=== PATIENT | female | born 1965 | race Caucasian/White ===

== ENCOUNTER 2018-04-22 16:25 | Emergency (ER) | payer BC ==
[2018-04-22] MEDS ORDERED: SODIUM CHLORIDE 0.9% 500 ML 500 ML IV STA (16:46)
[2018-04-22] MEDS ORDERED: SODIUM CHLORIDE 0.9% 1,000 ML IV STA (16:46)
[2018-04-22] MEDS ORDERED: MECLIZINE 12.5 MG TAB PO STA (16:51)
--- NOTE | 2018-04-22 16:57 | ED ---
General Adult HPI - General Chief complaint: Dizziness Stated complaint: Dizziness Time Seen by Provider: 04/22/18 16:39 Source: patient, RN notes reviewed Mode of arrival: ambulatory Limitations: no limitations - History of Present Illness Initial comments: Patient is a pleasant 52-year-old female presenting to the emergency department with dizziness. Patient felt fine and she woke up this morning. Patient laid down and took a nap later. Patient got up to shower around 12:30 and had sudden onset of dizziness. Dizziness is described as a spinning type sensation. Patient also had palpitations earlier. Palpitations have resolved. Patient did go to urgent care and was sent here with concerns for blood pressure being high. They did orthostatic blood pressure which the patient's friend who is a nurse states was non-concerning. - Related Data Home Medications Medication Instructions Recorded Confirmed Cholecalciferol [Vitamin D3] 3,000 unit PO DAILY 01/03/15 04/22/18 ALPRAZolam [Xanax] 0.25 mg PO DIRECTED PRN 04/22/18 04/22/18 Ibuprofen [Motrin Ib] 800 mg PO Q8H PRN 04/22/18 04/22/18 Multivitamin,Therapeutic [Thera] 1 tab PO DAILY 04/22/18 04/22/18 Allergies Allergy/AdvReac Type Severity Reaction Status Date / Time Penicillins Allergy Rash/Hives Verified 04/22/18 16:50 Sulfa (Sulfonamide Allergy Rash/Hives Verified 04/22/18 16:50 Antibiotics) adhesive AdvReac Rash/Hives Verified 04/22/18 16:50 Review of Systems ROS Statement: Those systems with pertinent positive or pertinent negative responses have been documented in the HPI. ROS Other: All systems not noted in ROS Statement are negative. Constitutional: Denies: fever Eyes: Denies: eye pain ENT: Denies: ear pain Respiratory: Denies: cough Cardiovascular: Reports: palpitations. Denies: chest pain Endocrine: Denies: fatigue Gastrointestinal: Denies: abdominal pain Genitourinary: Denies: dysuria Musculoskeletal: Denies: back pain Skin: Denies: rash Neurological: Reports: vertigo. Denies: headache, weakness, confusion Past Medical History Past Medical History: Hypertension History of Any Multi-Drug Resistant Organisms: None Reported Past Surgical History: Ablation, Cholecystectomy, Tonsillectomy Additional Past Surgical History / Comment(s): uterine ablation Past Psychological History: No Psychological Hx Reported Smoking Status: Never smoker Past Alcohol Use History: Occasional Past Drug Use History: None Reported General Exam Limitations: no limitations General appearance: alert, in no apparent distress Head exam: Present: atraumatic Eye exam: Present: normal appearance, PERRL, EOMI. Absent: nystagmus ENT exam: Present: normal oropharynx Neck exam: Present: normal inspection Respiratory exam: Present: normal lung sounds bilaterally Cardiovascular Exam: Present: regular rate, normal rhythm GI/Abdominal exam: Present: soft. Absent: tenderness Extremities exam: Present: normal inspection. Absent: pedal edema, calf tenderness Neurological exam: Present: alert, CN II-XII intact, normal gait. Absent: motor sensory deficit Expanded Neurological exam: Present: protecting the airway Speech: Present: fluid speech Cranial nerves: EOM's Intact: Normal, Facial Sensation: Normal Cerebellar function: Finger to Nose: Normal Sensory exam: Upper Extremity Light Touch: Normal, Lower Extremity Light Touch: Normal Motor strength exam: RUE: 5, LUE: 5, RLE: 5, LLE: 5 Eye Response: (4) open spontaneously Motor Response: (6) obeys commands Verbal Response: (5) oriented Psychiatric exam: Present: normal affect, normal mood Skin exam: Present: normal color Course Vital Signs 04/22/18 04/22/18 16:27 17:42 Temperature 98.4 F Pulse Rate 86 87 Respiratory 18 16 Rate Blood Pressure 153/101 131/74 O2 Sat by Pulse 100 99 Oximetry - Reevaluation(s) Reevaluation #1: 04/22/18 17:29 Patient reevaluated. Repeat blood pressure 149/74. EKG Findings - EKG Comments: EKG Findings:: Normal sinus rhythm at 70. WI 184. QRS 96. QT 404. QTC 436. Left axis. Inferior Q waves. No acute ST change Medical Decision Making - Medical Decision Making Patient reevaluated and resting comfortably in bed. Patient is symptom-free other than feeling a little bit tired at this time. Patient questions if her symptoms could be related to anxiety. Patient is updated on results and need for follow-up. - Lab Data Result diagrams: 04/22/18 17:03 04/22/18 17:03 Lab Results 11/17/18 11/17/18 11/17/18 Range/Units 17:03 17:03 17:03 WBC 14.1 H (3.8-10.6) k/uL RBC 4.93 (3.80-5.40) m/uL Hgb 14.4 (11.4-16.0) gm/dL Hct 42.8 (34.0-46.0) % MCV 86.7 (80.0-100.0) fL MCH 29.1 (25.0-35.0) pg MCHC 33.6 (31.0-37.0) g/dL RDW 12.4 (11.5-15.5) % Plt Count 292 (150-450) k/uL Neutrophils % 85 % Lymphocytes % 11 % Monocytes % 3 % Eosinophils % 0 % Basophils % 0 % Neutrophils # 12.0 H (1.3-7.7) k/uL Lymphocytes # 1.6 (1.0-4.8) k/uL Monocytes # 0.4 (0-1.0) k/uL Eosinophils # 0.0 (0-0.7) k/uL Basophils # 0.0 (0-0.2) k/uL PT (9.0-12.0) sec INR (<1.2) APTT (22.0-30.0) sec Sodium 139 (137-145) mmol/L Potassium 4.5 (3.5-5.1) mmol/L Chloride 104 (98-107) mmol/L Carbon Dioxide 24 (22-30) mmol/L Anion Gap 11 mmol/L BUN 17 (7-17) mg/dL Creatinine 0.71 (0.52-1.04) mg/dL Est GFR (CKD-EPI)AfAm >90 (>60 ml/min/1.73 sqM) Est GFR (CKD-EPI)NonAf >90 (>60 ml/min/1.73 sqM) Glucose 131 H (74-99) mg/dL Calcium 10.2 (8.4-10.2) mg/dL Magnesium 2.0 (1.6-2.3) mg/dL Total Bilirubin 0.7 (0.2-1.3) mg/dL AST 29 (14-36) U/L ALT 23 (9-52) U/L Alkaline Phosphatase 103 (38-126) U/L Total Creatine Kinase 70 (30-135) U/L CK-MB (CK-2) 0.4 (0.0-2.4) ng/mL CK-MB (CK-2) Rel Index 0.6 Troponin I <0.012 (0.000-0.034) ng/mL Total Protein 8.6 H (6.3-8.2) g/dL Albumin 4.8 (3.5-5.0) g/dL TSH 1.000 (0.465-4.680) mIU/L Free T4 1.20 (0.78-2.19) ng/dL Free T3 pg/mL 2.8 (2.8-5.3) pg/ml Urine Color Urine Appearance (Clear) Urine pH (5.0-8.0) Ur Specific [place] (1.001-1.035) Urine Protein (Negative) Urine Glucose (UA) (Negative) Urine Ketones (Negative) Urine Blood (Negative) Urine Nitrite (Negative) Urine Bilirubin (Negative) Urine Urobilinogen (<2.0) mg/dL Ur Leukocyte Esterase (Negative) Urine RBC (0-5) /hpf Urine WBC (0-5) /hpf Ur Squamous Epith Cells (0-4) /hpf Urine Bacteria (None) /hpf Urine Mucus (None) /hpf 04/22/18 04/22/18 Range/Units 17:03 17:03 WBC (3.8-10.6) k/uL RBC (3.80-5.40) m/uL Hgb (11.4-16.0) gm/dL Hct (34.0-46.0) % MCV (80.0-100.0) fL MCH (25.0-35.0) pg MCHC (31.0-37.0) g/dL RDW (11.5-15.5) % Plt Count (150-450) k/uL Neutrophils % % Lymphocytes % % Monocytes % % Eosinophils % % Basophils % % Neutrophils # (1.3-7.7) k/uL Lymphocytes # (1.0-4.8) k/uL Monocytes # (0-1.0) k/uL Eosinophils # (0-0.7) k/uL Basophils # (0-0.2) k/uL PT 10.5 (9.0-12.0) sec INR 1.1 (<1.2) APTT 26.0 (22.0-30.0) sec Sodium (137-145) mmol/L Potassium (3.5-5.1) mmol/L Chloride (98-107) mmol/L Carbon Dioxide (22-30) mmol/L Anion Gap mmol/L BUN (7-17) mg/dL Creatinine (0.52-1.04) mg/dL Est GFR (CKD-EPI)AfAm (>60 ml/min/1.73 sqM) Est GFR (CKD-EPI)NonAf (>60 ml/min/1.73 sqM) Glucose (74-99) mg/dL Calcium (8.4-10.2) mg/dL Magnesium (1.6-2.3) mg/dL Total Bilirubin (0.2-1.3) mg/dL AST (14-36) U/L ALT (9-52) U/L Alkaline Phosphatase (38-126) U/L Total Creatine Kinase (30-135) U/L CK-MB (CK-2) (0.0-2.4) ng/mL CK-MB (CK-2) Rel Index Troponin I (0.000-0.034) ng/mL Total Protein (6.3-8.2) g/dL Albumin (3.5-5.0) g/dL TSH (0.465-4.680) mIU/L Free T4 (0.78-2.19) ng/dL Free T3 pg/mL (2.8-5.3) pg/ml Urine Color Yellow Urine Appearance Cloudy H (Clear) Urine pH 6.0 (5.0-8.0) Ur Specific [place] 1.016 (1.001-1.035) Urine Protein Negative (Negative) Urine Glucose (UA) Negative (Negative) Urine Ketones 1+ H (Negative) Urine Blood Trace H (Negative) Urine Nitrite Negative (Negative) Urine Bilirubin Negative (Negative) Urine Urobilinogen <2.0 (<2.0) mg/dL Ur Leukocyte Esterase Large H (Negative) Urine RBC 2 (0-5) /hpf Urine WBC 16 H (0-5) /hpf Ur Squamous Epith Cells 12 H (0-4) /hpf Urine Bacteria Occasional H (None) /hpf Urine Mucus Rare H (None) /hpf - Radiology Data Radiology results: report reviewed (Computed tomography scan of the brain shows no acute process) Disposition Clinical Impression: Dizziness Disposition: HOME SELF-CARE Condition: Stable Instructions: Dizziness (ED) Additional Instructions: Please follow-up to primary care physician in the beginning of the week. Return for confusion, weakness, worsening or changing symptoms or other concerns. Is patient prescribed a controlled substance at d/c from ED?: No Referrals: Darwin Rapp DO [Primary Care Provider] - 1-2 days Time of Disposition: 18:13
[2018-04-22 17:27] LABS: Basophils % (A) 0 %; Eosinophils % (A) 0 %; HCT 42.8 % (34.0-46.0); HGB 14.4 gm/dL (11.4-16.0); Lymphocytes # (A) 1.6 k/uL (1.0-4.8); Lymphocytes % (A) 11 %; MCH 29.1 pg (25.0-35.0); MCHC 33.6 g/dL (31.0-37.0); MCV 86.7 fL (80.0-100.0); Mean Platelet Volume 6.5; Monocytes # (A) 0.4 k/uL (0-1.0); Monocytes % (A) 3 %; Neutrophils % (A) 85 %; Platelet Count 292 k/uL (150-450); RBC 4.93 m/uL (3.80-5.40); RDW 12.4 % (11.5-15.5); WBC 14.1 k/uL (3.8-10.6)
[2018-04-22 17:28] LABS: Appearance,Urine Cloudy (Clear); Bacteria,Urine Occasional /hpf; Bilirubin,Urine Negative (Negative); Blood,Urine Trace (Negative); Color,Urine Yellow; Glucose,Urine (UA) Negative (Negative); Ketones,Urine 1+ (Negative); Leukocyte Esterase,Urine Large (Negative); Mucus,Urine Rare /hpf; Nitrite,Urine Negative (Negative); Protein,Urine Negative (Negative); RBC,Urine 2 /hpf (0-5); Specific Gravity,Urine 1.016 (1.001-1.035); Squamous Epithelial Cell,Urine 12 /hpf (0-4); Urobilinogen,Urine <2.0 mg/dL (<2.0); WBC,Urine 16 /hpf (0-5)
--- NOTE | 2018-04-22 17:30 | CT ---
EXAMINATION TYPE: CT brain wo con DATE OF EXAM: 04/22/2018 COMPARISON: NONE HISTORY: Lightheaded/dizzy. Transfer from [facility] with HTN CT DLP: 1222.4 mGycm. Automated Exposure Control for Dose Reduction was Utilized. TECHNIQUE: CT scan of the head is performed without contrast. FINDINGS: There is no acute intracranial hemorrhage, mass effect, or midline shift identified. No s uspicious extra-axial fluid collection. The ventricles and sulci are within normal limits in size. The globes are intact and the visualized sinuses are clear. Incidental note is made of a partially em pty sella turcica. IMPRESSION: No acute intracranial hemorrhage, mass effect, or midline shift is seen.
[2018-04-22 17:41] LABS: ALT 23 U/L (9-52); AST 29 U/L (14-36); Albumin 4.8 g/dL (3.5-5.0); Alkaline Phosphatase 103 U/L (38-126); Anion Gap 11 mmol/L; Blood Urea Nitrogen 17 mg/dL (7-17); Calcium 10.2 mg/dL (8.4-10.2); Carbon Dioxide 24 mmol/L (22-30); Chloride 104 mmol/L (98-107); Creatine Kinase 70 U/L (30-135); Glucose 131 mg/dL (74-99); Potassium 4.5 mmol/L (3.5-5.1); Sodium 139 mmol/L (137-145); Total Bilirubin 0.7 mg/dL (0.2-1.3); Total Protein 8.6 g/dL (6.3-8.2)
[2018-04-22 17:43] VITALS: RESP 16
[2018-04-22 17:53] LABS: Creatine Kinase MB 0.4 ng/mL (0.0-2.4); Troponin I <0.012 ng/mL (0.000-0.034)
[2018-04-22 18:08] LABS: INR 1.1 (<1.2); Prothrombin Time 10.5 sec (9.0-12.0)
[2018-04-22 18:30] VITALS: BP 147/76; PULSE 76; TEMP 98.1
== END 2018-04-22 18:34 | disposition home or self-care (01) ==
LOC: EC 16:25
DX: R42 Dizziness and giddiness (principal); I10 Essential (primary) hypertension; Z88.0 Allergy status to penicillin; Z88.2 Allergy status to sulfonamides; Z91.048 Other nonmedicinal substance allergy status
CPT/HCPCS: 36415; 70450; 80053; 81001; 82550; 82553; 83735; 84439; 84443; 84481; 84484; 85025; 85610; 85730; 87086; 93005; 96360; 99284

== ENCOUNTER → 2018-05-23 | Outpatient (CLI) | payer BC ==
--- NOTE | 2018-05-24 12:41 | MM ---
Reason for exam: screening (asymptomatic). Last mammogram was performed 1 year and 2 months ago. History: Patient has history of other cancer at age 32 and had first child at age 32. Family history of breast cancer in maternal aunt at age 50, breast cancer in mother at age 70, and breast cancer in aunt at age 50. Took hormonal contraceptives for 1 year. Physical Findings: A clinical breast exam by your physician is recommended on an annual basis and results should be correlated with mammographic findings. Screening Mammo w CAD Bilateral CC and MLO view(s) were taken. Prior study comparison: March 18, 2017, bilateral [facility] screening mammo. April 05, 2016, bilateral [facility] screening mammo. The breast tissue is heterogeneously dense. This may lower the sensitivity of mammography. There are benign appearing round calcifications bilaterally. There is no discrete abnormality. ASSESSMENT: Benign, BI-RAD 2 RECOMMENDATION: Routine screening mammogram of both breasts in 1 year.
== END | disposition home or self-care (01) ==
LOC: RADMAMWWP 16:55
PROVIDERS: ATTEND Obstetrics & Gynecology
DX: Z12.31 Encounter for screening mammogram for malignant neoplasm of breast (principal)
CPT/HCPCS: 77067

== ENCOUNTER → 2018-08-07 | Outpatient (CLI) | payer BC ==
--- NOTE | 2018-08-08 08:17 | US ---
EXAMINATION TYPE: US bladder DATE OF EXAM: 08/07/2018 COMPARISON: NONE CLINICAL HISTORY: 52-year-old female R35.0 Frequency of Micturition. TECHNIQUE: Multiple sonographic images of the bladder were obtained. FINDINGS: No gross abnormal mobility of the bladder. Post Void Residual Volume: 85.8 mL. The patient stated that she voided well. Color Doppler performed to assess ureteral jets. Bilateral Jets seen: yes IMPRESSION: The patient felt that she voided well. However, there is postvoid bladder volume of 86 mL compatible with urinary retention.
== END ==
LOC: RADUSWWP 16:11
PROVIDERS: ATTEND Family Medicine
DX: R35.0 Frequency of micturition (principal)
CPT/HCPCS: 76857

== ENCOUNTER → 2019-06-15 | Outpatient (CLI) | payer BC ==
--- NOTE | 2019-06-18 08:06 | MM ---
Reason for exam: screening (asymptomatic). Last mammogram was performed 1 year and 1 month ago. History: Patient has history of other cancer at age 32 and had first child at age 32. Family history of breast cancer in maternal aunt at age 50, breast cancer in mother at age 70, and breast cancer in aunt at age 50. Took hormonal contraceptives for 1 year. Physical Findings: A clinical breast exam by your physician is recommended on an annual basis and results should be correlated with mammographic findings. MG 3D Screening Mammo W/Cad Bilateral CC and MLO view(s) were taken. Prior study comparison: May 23, 2018, bilateral [facility] mammo w CAD. March 18, 2017, bilateral [facility]. There is no discrete abnormality. ASSESSMENT: Negative, BI-RAD 1 RECOMMENDATION: Routine screening mammogram of both breasts in 1 year.
== END | disposition home or self-care (01) ==
LOC: RADMAMWWP 07:18
PROVIDERS: ATTEND Obstetrics & Gynecology
DX: Z12.31 Encounter for screening mammogram for malignant neoplasm of breast (principal)
CPT/HCPCS: 77063; 77067

== ENCOUNTER 2019-12-29 13:39 | Emergency (ER) | payer BC ==
[2019-12-29 13:45] VITALS: BP 110/66; PULSE 88; RESP 18; TEMP 98.2
[2019-12-29] MEDS ORDERED: DIPH,PERTUS(ACELL)TETVAC-LF 0.5 ML VIAL IM ONE (14:18)
--- NOTE | 2019-12-29 14:21 | ED ---
General Adult HPI - General Chief complaint: Extremity Injury, Upper Stated complaint: finger shut in car door Source: patient, RN notes reviewed Mode of arrival: wheelchair Limitations: no limitations - History of Present Illness Initial comments: 54-year-old female with a past medical history of hypertension presents to the emergency room for a chief complaint of left second digit injury. Patient was finishing up shopping. States she went to close her car door and got her finger stuck in the car door. States it was very painful. States she started to pass out because she saw blood and told her son to drive her to the emergency room. Patient states the area is still painful.Patient has no other complaints at this time including shortness of breath, chest pain, abdominal pain, nausea or vomiting, headache, or visual changes. - Related Data Home Medications Medication Instructions Recorded Confirmed Cholecalciferol [Vitamin D3] 3,000 unit PO DAILY 01/03/15 04/22/18 ALPRAZolam [Xanax] 0.25 mg PO DIRECTED PRN 04/22/18 04/22/18 Ibuprofen [Motrin Ib] 800 mg PO Q8H PRN 04/22/18 04/22/18 Multivitamin,Therapeutic [Thera] 1 tab PO DAILY 04/22/18 04/22/18 Allergies Allergy/AdvReac Type Severity Reaction Status Date / Time Penicillins Allergy Rash/Hives Verified 12/29/19 13:44 Sulfa (Sulfonamide Allergy Rash/Hives Verified 12/29/19 13:44 Antibiotics) adhesive AdvReac Rash/Hives Verified 12/29/19 13:44 Review of Systems ROS Statement: Those systems with pertinent positive or pertinent negative responses have been documented in the HPI. ROS Other: All systems not noted in ROS Statement are negative. Past Medical History Past Medical History: Hypertension History of Any Multi-Drug Resistant Organisms: None Reported Past Surgical History: Ablation, Cholecystectomy, Tonsillectomy Additional Past Surgical History / Comment(s): uterine ablation Past Psychological History: No Psychological Hx Reported Smoking Status: Never smoker Past Alcohol Use History: Occasional Past Drug Use History: None Reported General Exam Limitations: no limitations General appearance: alert, in no apparent distress Head exam: Present: atraumatic, normocephalic, normal inspection Eye exam: Present: normal appearance, PERRL, EOMI. Absent: scleral icterus, conjunctival injection ENT exam: Present: normal exam, mucous membranes moist Neck exam: Present: normal inspection, full ROM. Absent: tenderness, meningismus, lymphadenopathy Respiratory exam: Present: normal lung sounds bilaterally. Absent: respiratory distress, wheezes, rales, rhonchi, stridor Cardiovascular Exam: Present: regular rate Extremities exam: Present: other (Patient has a very superficial 5 mm laceration noted over the dorsal aspect middle phalanx left second finger. She has generalized tenderness of the left second digit with minimal edema. Patient does have a ring in place. Capillary refill less than 2 seconds of the left second digit.) Course Vital Signs 12/29/19 13:43 Temperature 98.2 F Pulse Rate 88 Respiratory 18 Rate Blood Pressure 110/66 O2 Sat by Pulse 98 Oximetry Medical Decision Making - Medical Decision Making X-ray of the left second digit is negative for acute fracture. Films were reviewed. As discussed is a very superficial small 5 mm laceration to the middle phalanx second digit of the left hand. I do not suspect any tendon involvement. Patient can move the finger. Patient likely has a contusion of finger. Will rest ice and elevate the left hand. Will take Motrin and Tylenol. Will return here for any worsening symptoms. Disposition Clinical Impression: Finger contusion Disposition: HOME SELF-CARE Condition: Good Instructions (If sedation given, give patient instructions): Finger Sprain (ED) Additional Instructions: Please take Motrin and Tylenol for pain. Please rest the left second digit. Apply antibiotic ointment and watch for infection. Please follow-up with primar y care in 1-2 days. Return to the emergency room for any worsening symptoms. Is patient prescribed a controlled substance at d/c from ED?: No Referrals: Darwin Rapp DO [Primary Care Provider] - 1-2 days Time of Disposition: 15:05
--- NOTE | 2019-12-29 15:02 | XR ---
EXAMINATION TYPE: XR finger LT DATE OF EXAM: 12/29/2019 COMPARISON: NONE HISTORY: Injury. Pain. TECHNIQUE: 3 views FINDINGS: I see no definite fracture nor dislocation. Joint spaces are normal. IMPRESSION: Negative left index finger exam. No fracture seen.
== END 2019-12-29 15:18 | disposition home or self-care (01) ==
LOC: EC 13:39
DX: S61.211A Laceration without foreign body of left index finger without damage to nail, initial encounter (principal); Z88.0 Allergy status to penicillin; Z88.2 Allergy status to sulfonamides; Z91.048 Other nonmedicinal substance allergy status; Z23 Encounter for immunization; W23.0XXA Caught, crushed, jammed, or pinched between moving objects, initial encounter
CPT/HCPCS: 90471; 90715; 99283

== ENCOUNTER → 2020-04-21 | Outpatient (CLI) | payer BC | END | disposition home or self-care (01) | LOC: LABWHC1 09:38 | PROVIDERS: ATTEND Physician Assistant | DX: R43.0 Anosmia (principal) | CPT/HCPCS: U0003; C9803 ==

== ENCOUNTER → 2020-06-19 | Outpatient (CLI) | payer BC ==
--- NOTE | 2020-06-20 10:14 | MM ---
Reason for exam: screening (asymptomatic). Last mammogram was performed 1 year ago. History: Patient has history of other cancer at age 32 and had first child at age 32. Family history of breast cancer in maternal aunt at age 50, breast cancer in mother at age 70, and breast cancer in aunt at age 50. Took hormonal contraceptives for 1 year. Physical Findings: A clinical breast exam by your physician is recommended on an annual basis and results should be correlated with mammographic findings. MG Screening Mammo w CAD Bilateral CC and MLO view(s) were taken. Prior study comparison: June 15, 2019, bilateral [facility] 3d screening mammo w/cad. May 23, 2018, bilateral [facility] screening mammo w CAD. The breast tissue is heterogeneously dense. This may lower the sensitivity of mammography. Asymmetric breast tissue right upper posterior position, stable. There is no discrete abnormality. ASSESSMENT: Negative, BI-RAD 1 RECOMMENDATION: Routine screening mammogram of both breasts in 1 year.
== END | disposition home or self-care (01) ==
LOC: RADMAMWWP 07:19
PROVIDERS: ATTEND Obstetrics & Gynecology
DX: Z12.31 Encounter for screening mammogram for malignant neoplasm of breast (principal); Z80.3 Family history of malignant neoplasm of breast
CPT/HCPCS: 77067

== ENCOUNTER → 2021-09-04 | Outpatient (CLI) | payer BC ==
--- NOTE | 2021-09-04 11:48 | US ---
EXAMINATION TYPE: US transvaginal DATE OF EXAM: 09/04/2021 COMPARISON: NONE CLINICAL HISTORY: N93.8 DUB. DUB had ablation done in 2007 TECHNIQUE: Transvaginal (TV). EXAM MEASUREMENTS: Uterus: 9.1 x 5.3 x 6.5 cm. Multiple nabothian cysts within the cervix. Endometrial Stripe: Obscured by fibroids 1. Uterus: Anteverted Heterogenous appears to have fibroid changes measuring 5.7 x 4.8 x 5.0cm. 2. Endometrium: Obscured 3. Right Ovary: Obscured by overlying bowel gas 4. Left Ovary: Obscured by overlying bowel gas 5. Bilateral Adnexa: wnl 6. Posterior cul-de-sac: wnl IMPRESSION: 1. Heterogenous with an indistinct endometrial canal which can be related to prior ablation. 2. Limited examination due to bowel gas
== END | disposition home or self-care (01) ==
LOC: RADUSWWP 07:36
PROVIDERS: ATTEND Obstetrics & Gynecology
DX: N93.8 Other specified abnormal uterine and vaginal bleeding (principal)
CPT/HCPCS: 76830

== ENCOUNTER → 2022-09-10 | Outpatient (CLI) | payer BC ==
--- NOTE | 2022-09-13 16:10 | MM ---
Reason for Exam: Screening (asymptomatic). Last screening mammogram was performed 12 month(s) ago. Patient History: Menarche at age 11. First Full-Term at age 32. Late child-bearing (after 30). Perimenopausal. Other cancer, age 32. Patient used Hormonal Contraceptives for 1 year. Maternal aunt had breast cancer, age 50. Maternal aunt had breast cancer, age 50. Maternal aunt had breast cancer, age 60. Mother had breast cancer, age 70. Risk Values: Jennifer 5 year model risk: 2.7%. NCI Lifetime model risk: 17.0%. Prior Study Comparison: 06/15/2019 Bilateral Screening Mammogram, [facility]. 06/19/2020 Bilateral Screening Mammogram, [facility]. 09/09/2021 Bilateral Screening Mammogram, [facility]. Tissue Density: There are scattered fibroglandular densities. Findings: Analyzed By CAD. Pattern appears symmetrical and stable. No significant interval change is evident. Some chronic nodularity is within the right breast. Benign-appearing calcifications within the right breast. No suspicious groups of microcalcifications, spiculated or lobular masses, architectural distortion or other secondary signs of malignancy are mammographically apparent. Overall Assessment: Benign, BI-RAD 2 Management: Screening Mammogram of both breasts in 1 year. A negative mammogram report should not preclude additional follow up of suspicious palpable abnormalities. Patient should continue monthly self breast exam. A clinical breast exam by your physician is recommended on an annual basis and results should be correlated with mammographic findings. Electronically signed and approved by: Darwin Yadav D.O. Radiologis
== END | disposition home or self-care (01) ==
LOC: RADMAMWWP 07:02
PROVIDERS: ATTEND Obstetrics & Gynecology
DX: Z12.31 Encounter for screening mammogram for malignant neoplasm of breast (principal); Z80.3 Family history of malignant neoplasm of breast
CPT/HCPCS: 77063; 77067

== ENCOUNTER → 2023-09-13 | Outpatient (CLI) | payer BC ==
--- NOTE | 2023-09-15 15:04 | MM ---
Reason for Exam: Screening (asymptomatic). Last screening mammogram was performed 12 month(s) ago. Patient History: Menarche at age 11. First Full-Term at age 32. Late child-bearing (after 30). Postmenopausal. Patient used Hormonal Contraceptives for 1 year. Maternal aunt had breast cancer, age 50. Maternal aunt had breast cancer, age 50. Maternal aunt had breast cancer, age 60. Mother had breast cancer, age 70. Risk Values: Jennifer 5 year model risk: 2.9%. NCI Lifetime model risk: 16.6%. Prior Study Comparison: 06/19/2020 Bilateral Screening Mammogram, [facility]. 09/09/2021 Bilateral Screening Mammogram, [facility]. 09/10/2022 Bilateral MG 3D screening mammo w/cad, [facility]. Tissue Density: The breasts are heterogeneously dense, which may obscure small masses. Findings: Analyzed By CAD. There is no suspicious group of microcalcifications or new suspicious mass in either breast. Overall Assessment: Negative, BI-RAD 1 Management: Screening Mammogram of both breasts in 1 year. . Patient should continue monthly self-breast exams. A clinical breast exam by your physician is recommended on an annual basis. This exam should not preclude additional follow-up of suspicious palpable abnormalities. Note on Jennifer scores and lifetime risk: 1. A Jennifer score greater than 3% is considered moderate risk. If this is the case, consider specialist referral to assess eligibility for a risk reducing agent. 2. If overall lifetime risk for the development of breast cancer is 20% or higher, the patient may qualify for future screening with alternating mammogram and breast MRI. Electronically signed and approved by: Ankit Conrad M.D. Radiologis
== END | disposition home or self-care (01) ==
LOC: RADMAMWWP 15:45
PROVIDERS: ATTEND Obstetrics & Gynecology
DX: Z12.31 Encounter for screening mammogram for malignant neoplasm of breast (principal); Z78.0 Asymptomatic menopausal state; Z80.3 Family history of malignant neoplasm of breast
CPT/HCPCS: 77063; 77067

== ENCOUNTER → 2024-12-14 | Outpatient (CLI) | payer BC ==
--- NOTE | 2024-12-14 11:46 | BD ---
EXAMINATION TYPE: Axial Bone Density DATE OF EXAM: 12/14/2024 CLINICAL HISTORY: 58 years old Female. ICD-10 CODE: N95.1 MENOPAUSE , Additional History: Height: 63.5 in Weight: 225 lbs EXAM MEASUREMENTS: Bone mineral densitometry was performed using the [employer] System. Bone mineral density as measured about the Lumbar spine is: ----- L1-L4(G/cm2): 1.405 T Score Values are as follows: ----- L1: 1.4 ----- L2: 1.3 ----- L3: 1.8 ----- L4: 2.8 ----- L1-L4: 1.9 Z Score Values are as follows: ----- L1: 1.3 ----- L2: 1.2 ----- L3: 1.8 ----- L4: 2.7 ----- L1-L4: 1.8 Bone mineral density baseline Bone mineral density about the R hip (g/cm2): 1.129 Bone mineral density about the L hip (g/cm2): 1.197 T Score values are as follows: -----R Neck: 0.3 -----L Neck: 1.5 -----R Total: 1.0 -----L Total: 1.5 Z Score values are as follows: -----R Neck: 0.7 -----L Neck: 1.9 -----R Total: 1.0 -----L Total: 1.5 Bone mineral density baseline FRAX%s: The graph provided illustrates a 5.1% chance for a major osteoporotic fx and a 0.1% chance fo r the hips probability for fx in 10 years time. IMPRESSION: Normal (Values between +1 and -1 indicate normal bone mass). Consider repeating this study in 5 year s or sooner if there is some new clinical indication. NOTE: T-SCORE=SD OF THE YOUNG ADULT MEAN. [facility], , 12/14/2024 11:44 AM
--- NOTE | 2024-12-14 11:53 | MM ---
Reason for Exam: Screening (asymptomatic). Last mammogram was performed 1 year(s) and 3 month(s) ago. Patient History: Menarche at age 11. First Full-Term at age 32. Late child-bearing (after 30). Postmenopausal. Patient has history of breast feeding. Currently using Hormonal Contraceptives, beginning at age 57 for 1 year. Maternal aunt had breast cancer, age 50. Maternal aunt had breast cancer, age 50. Maternal aunt had breast cancer, age 60. Mother had breast cancer, age 70. Risk Values: Jennifer 5 year model risk: 3.0%. NCI Lifetime model risk: 16.3%. Prior Study Comparison: 03/18/2017 Bilateral Screening Mammogram, [facility]. 05/23/2018 Bilateral Screening Mammogram, [facility]. 06/15/2019 Bilateral Screening Mammogram, [facility]. 06/19/2020 Bilateral Screening Mammogram, [facility]. 09/09/2021 Bilateral Screening Mammogram, [facility]. 09/10/2022 Bilateral MG 3D screening mammo w/cad, [facility]. 09/13/2023 Bilateral MG 3D screening mammo w/cad, [facility]. Tissue Density: There are scattered areas of fibroglandular density. Findings: Analyzed By CAD. There is no suspicious group of microcalcifications or new suspicious mass in either breast. Overall Assessment: Negative, BI-RAD 1 Management: Screening Mammogram of both breasts in 1 year. . Patient should continue monthly self-breast exams. A clinical breast exam by your physician is recommended on an annual basis. This exam should not preclude additional follow-up of suspicious palpable abnormalities. Note on Jennifer scores and lifetime risk: 1. A Jennifer score greater than 3% is considered moderate risk. If this is the case, consider specialist referral to assess eligibility for a risk reducing agent. 2. If overall lifetime risk for the development of breast cancer is 20% or higher, the patient may qualify for future screening with alternating mammogram and breast MRI. [facility], , 12/14/2024 11:50 AM. Electronically signed and approved by: Billy Cornell M.D.
== END | disposition home or self-care (01) ==
LOC: RADMAMWWP 10:40
PROVIDERS: ATTEND Obstetrics & Gynecology
DX: Z12.31 Encounter for screening mammogram for malignant neoplasm of breast (principal); R92.323 Mammographic fibroglandular density, bilateral breasts; Z78.0 Asymptomatic menopausal state; Z80.3 Family history of malignant neoplasm of breast; Z79.3 Long term (current) use of hormonal contraceptives
CPT/HCPCS: 77063; 77067; 77080